=== PATIENT | male | born 1955 | race Caucasian/White ===

== ENCOUNTER 2016-08-23 17:31 | Inpatient (IN) | payer MEDICARE, OTHER ==
[~2016-08-23] VITALS: Ht 177.8 cm; Wt 110.3 kg
[~2016-08-23 17:31] MED LIST: ALPRAZOLAM0.5 M2 PO; ATIVAN1 MG PO; BYSTOLIC5 MG PO; CLEOCIN HC150 MG/CAP PO; FLEXERIL 1010 MG/TAB PO; FLEXERIL5 MG PO; LEXAPRO 10MG10 MG PO; LORTAB 5/500 501 TAB PO; LORTAB 7.5/5001 TAB PO; NAPROXEN 3375 MG/TAB PO; NEURONTIN300 MG/CAP PO; NORCO 325 MG-51 TAB PO; NORVASC5 MG PO; OMEPRAZOLE40 MG PO; PERCOCET 325 MG1 TA2 PO; PERCOCET 325 MG1 TAB PO; PERCR 7.5 PO; PROMETHAZINE12.5 M5 PO; ROXICODONE 55 MG/TAB PO; SERTRALINE50 MG PO; SOMA 350MG350 MG/TAB PO; XANAX 0.5MG0.5 MG PO; XANAX 1MG1 MG PO; ZOFRAN ODT4 MG PO; ZOLOFT 100MG100 MG PO; [UNRECOGNIZED DRUG - CODE]
[2016-08-23 18:17] LABS: BASO % 0.6 % (0.0-2.0); EOS # 0.1 (0.0-0.7); EOS % 1.4 % (0-4.0); GRAN # 3.3 (1.4-6.5); GRAN % 52.2 % (42.2-75.2); HEMATOCRIT 41.3 % (42.0-52.0); HEMOGLOBIN 14.5 g/dl (13.5-18.0); LYMPH # 2.3 (1.2-3.4); LYMPH % 36.5 % (20.0-51.0); MEAN CELL VOLUME 91 fl (80.0-100.0); MEAN CORPUSCULAR HEMOGLOBIN 32 pg (27.0-31.0); MEAN CORPUSCULAR HGB CONC 35 g/dl (33.0-37.0); MEAN PLATELET VOLUME 10.6 fl (7.4-10.4); MONO # 0.6 (0.1-0.6); MONO % 9.1 % (1.7-9.3); PLATELET COUNT 168 K/mm3 (130-400); RED BLOOD COUNT 4.55 M/mm3 (4.20-5.60); REDCELL DISTRIBUTION WIDTH-CV 13.3 % (11.5-14.5); WHITE BLOOD COUNT 6.2 K/mm3 (4.8-10.8)
[2016-08-23] MEDS ORDERED: PERCOCET 325 MG1 TA3 PO (18:29)
[2016-08-23 18:37] LABS: ADJUSTED CALCIUM 9.4 mg/dL (8.4-10.2); ALANINE AMINOTRANSFERASE 48 U/L (21-72); ALBUMIN 3.8 gm/dL (3.5-5.0); ALKALINE PHOSPHATASE 69 U/L (50-136); ANION GAP 10 mmol/L (7-16); BILIRUBIN,TOTAL 0.7 mg/dL (0.0-1.0); BLOOD UREA NITROGEN 18 mg/dL (9-20); CALCIUM 9.2 mg/dL (8.4-10.2); CARBON DIOXIDE 30 mmol/L (22-30); CHLORIDE 102 mmol/L (98-107); CREATININE, serum 1.19 mg/dL (0.66-1.25); GLUCOSE 103 mg/dL (74-106); LIPASE 73 U/L (23-300); MAGNESIUM 1.9 mg/dL (1.6-2.3); POTASSIUM 4.2 mmol/L (3.4-5.0); SODIUM 142 mmol/L (137-145); TOTAL PROTEIN 7.3 gm/dL (6.4-8.2)
[2016-08-23 18:38] LABS: C-REACTIVE PROTEIN < 0.5 mg/dL (0.0-0.9)
[2016-08-23 18:46] LABS: TROPONIN-I < 0.012 ng/mL (0.000-0.034)
[2016-08-23 18:59] LABS: PH 6 (5-8); SQUAMOUS EPITHELIAL 0-2 /hpf; URINE APPEARANCE Clear; URINE BACTERIA None Seen /hpf; URINE BILIRUBIN Negative (NEGATIVE); URINE BLOOD Negative (NEGATIVE); URINE COLOR Yellow; URINE GLUCOSE Negative (NEGATIVE); URINE KETONE Negative (NEGATIVE); URINE RBC 0-2 /hpf; URINE UROBILINOGEN Negative (NEGATIVE); URINE WBC 0-2 /hpf
[2016-08-23 20:39] LABS: B-TYPE NATRIURETIC PEPTIDE 151 pg/mL (0-125)
[2016-08-23 22:19] VITALS: BP 158/90; PULSE 57; TEMP 97.7
[2016-08-24 02:37] VITALS: BP 124/55; PULSE 50; TEMP 97.6
[2016-08-24 08:19] VITALS: BP 143/71; PULSE 56; TEMP 97.5
[2016-08-24 11:35] VITALS: BP 100/56; PULSE 55; TEMP 97.5
[2016-08-24 15:26] VITALS: BP 139/69; PULSE 59; TEMP 97.7
[2016-08-24 19:18] VITALS: BP 155/76; PULSE 58; TEMP 97.8
[2016-08-24 23:30] VITALS: BP 156/87; PULSE 57; TEMP 97.8
[2016-08-25 03:40] VITALS: BP 147/80; PULSE 54; TEMP 98.2
[2016-08-25 07:49] VITALS: BP 155/68; PULSE 58; TEMP 97.8
[2016-08-25 11:57] VITALS: BP 124/57; PULSE 55; TEMP 98.4
[2016-08-25 15:58] VITALS: BP 149/73; PULSE 57; TEMP 97.6
[2016-08-25 19:46] VITALS: BP 151/76; PULSE 52; TEMP 98.3
[2016-08-26 00:14] VITALS: BP 129/59; PULSE 60; TEMP 97.6
[2016-08-26 05:24] VITALS: BP 156/87; PULSE 57; TEMP 97.5
[2016-08-26 11:08] VITALS: BP 133/78; PULSE 56; TEMP 97.8
[2016-08-26 16:53] VITALS: BP 159/90; PULSE 61; TEMP 98.3
[2016-08-26 20:10] VITALS: BP 155/78; PULSE 60; TEMP 98
[2016-08-27] VITALS (299 sets, daily range): BP systolic 132–152; BP diastolic 60–110; PULSE 56–104; TEMP 97.2–98.9; O2SAT 92–99
[2016-08-27 08:18] LABS: HEMATOCRIT 39.4 % (42.0-52.0); HEMOGLOBIN 13.9 g/dl (13.5-18.0); MEAN CELL VOLUME 90 fl (80.0-100.0); MEAN CORPUSCULAR HEMOGLOBIN 32 pg (27.0-31.0); MEAN CORPUSCULAR HGB CONC 35 g/dl (33.0-37.0); MEAN PLATELET VOLUME 10.3 fl (7.4-10.4); PLATELET COUNT 161 K/mm3 (130-400); RED BLOOD COUNT 4.38 M/mm3 (4.20-5.60); REDCELL DISTRIBUTION WIDTH-CV 13.2 % (11.5-14.5); WHITE BLOOD COUNT 5.1 K/mm3 (4.8-10.8)
[2016-08-27 08:31] LABS: ADJUSTED CALCIUM 8.7 mg/dL (8.4-10.2); ALBUMIN 3.8 gm/dL (3.5-5.0); BILIRUBIN,TOTAL 0.9 mg/dL (0.0-1.0); BLOOD UREA NITROGEN 11 mg/dL (9-20); CALCIUM 8.5 mg/dL (8.4-10.2); CHLORIDE 102 mmol/L (98-107); POTASSIUM 3.9 mmol/L (3.4-5.0); SODIUM 138 mmol/L (137-145)
[2016-08-27 08:48] LABS: ALANINE AMINOTRANSFERASE 71 U/L (21-72); ALKALINE PHOSPHATASE 65 U/L (50-136); CARBON DIOXIDE 25 mmol/L (22-30); CREATININE, serum 0.99 mg/dL (0.66-1.25); GLUCOSE 95 mg/dL (74-106); TOTAL PROTEIN 6.8 gm/dL (6.4-8.2)
[2016-08-27 08:49] LABS: ANION GAP 11 mmol/L (7-16)
[2016-08-27 08:50] LABS: TROPONIN-I < 0.012 ng/mL (0.000-0.034)
[2016-08-27] MEDS ORDERED: PROTONIX 40MG T40 MG PO (11:19)
== END 2016-08-27 12:34 | disposition home or self-care (01) | DRG 392 ==
LOC: COL.ER 17:31 → MEDICAL 21:06 → ICU 08-25 15:47 → MEDICAL 08-25 15:47 → ICU 08-27 03:08
PROVIDERS: Emergency Medicine; Internal Medicine Gastroenterology
PROC: 0DB68ZX Excision of Stomach, Via Natural or Artificial Opening Endoscopic, Diagnostic (ICD-10-PCS; principal; 2016-08-26 08:10)
DX: K29.30 Chronic superficial gastritis without bleeding (principal); K29.80 Duodenitis without bleeding; K25.7 Chronic gastric ulcer without hemorrhage or perforation; I16.0 Hypertensive urgency; F41.1 Generalized anxiety disorder; I44.0 Atrioventricular block, first degree
CPT/HCPCS: 99233-AI; 99239; A9537; G0378; J1170; J1650; J2405; J2704; J7030; Q9967

== ENCOUNTER → 2018-02-05 | Outpatient (CLI) | payer MEDICARE ==
[~2018-02-05] MED LIST changes: +PERCOCET 325 MG1 TA3 PO; +PROTONIX 40MG T40 MG PO
== END ==
LOC: COL.RAD 08:56
DX: M16.11 Unilateral primary osteoarthritis, right hip (principal)
CPT/HCPCS: J3301; Q9967

== ENCOUNTER 2018-04-25 09:58 | Emergency (ER) | payer MEDICARE ==
[~2018-04-25] VITALS: Ht 177.8 cm; Wt 97.7 kg
[2018-04-25 10:03] VITALS: TEMP 97.1
[2018-04-25] MEDS ORDERED: PREDNISONE10 MG PO (10:53)
[2018-04-25 11:06] VITALS: BP 144/89; PULSE 65
== END 2018-04-25 11:03 | disposition home or self-care (01) ==
LOC: COL.ER 09:58
DX: S43.102A Unspecified dislocation of left acromioclavicular joint, initial encounter (principal); G89.29 Other chronic pain; M54.12 Radiculopathy, cervical region; Z79.52 Long term (current) use of systemic steroids; X58.XXXA Exposure to other specified factors, initial encounter

== ENCOUNTER 2019-07-15 11:55 | Emergency (ER) | payer SELFPAY ==
[~2019-07-15] VITALS: Ht 177.8 cm; Wt 100.0 kg
[~2019-07-15 11:55] MED LIST changes: +PREDNISONE10 MG PO
[2019-07-15] MEDS ORDERED: LIPITOR 40MG TA40 MG PO (12:05)
[2019-07-15] MEDS ORDERED: NORVASC 5MG5 MG/TAB PO (12:05)
[2019-07-15] MEDS ORDERED: FLEXERIL 1010 MG/TAB PO (13:53)
[2019-07-15 15:34] LABS: BASO % 0.5 % (0.0-2.0); EOS # 0.1 (0.0-0.7); EOS % 2.1 % (0-4.0); GRAN # 3.9 (1.4-6.5); GRAN % 59.4 % (42.2-75.2); HEMATOCRIT 41.3 % (42.0-52.0); HEMOGLOBIN 14.5 g/dl (13.5-18.0); LYMPH # 1.9 (1.2-3.4); LYMPH % 28.8 % (20.0-51.0); MEAN CELL VOLUME 90 fl (80.0-100.0); MEAN CORPUSCULAR HEMOGLOBIN 32 pg (27.0-31.0); MEAN CORPUSCULAR HGB CONC 35 g/dl (33.0-37.0); MEAN PLATELET VOLUME 10.1 fl (7.4-10.4); MONO # 0.6 (0.1-0.6); PLATELET COUNT 180 K/mm3 (130-400); RED BLOOD COUNT 4.58 M/mm3 (4.20-5.60); REDCELL DISTRIBUTION WIDTH-CV 12.4 % (11.5-14.5)
[2019-07-15 15:43] LABS: ALANINE AMINOTRANSFERASE 33 U/L (21-72); ALBUMIN 4.4 gm/dL (3.5-5.0); ALKALINE PHOSPHATASE 69 U/L (50-136); ANION GAP 6 mmol/L (7-16); AST,SGOT 22 U/L (15-37); BILIRUBIN,TOTAL 0.4 mg/dL (0.0-1.0); BLOOD UREA NITROGEN 15 mg/dL (9-20); CALCIUM 9.2 mg/dL (8.4-10.2); CARBON DIOXIDE 29 mmol/L (22-30); CHLORIDE 105 mmol/L (98-107); CREATININE, serum 0.84 (0.66-1.25); GLUCOSE 86 mg/dL (74-106); POTASSIUM 4.3 mmol/L (3.4-5.0); SODIUM 140 mmol/L (137-145); TOTAL PROTEIN 7.6 gm/dL (6.4-8.2)
[2019-07-15 16:00] VITALS: BP 148/74; PULSE 55; TEMP 98.2
[2019-07-15 16:01] LABS: TROPONIN-I < 0.012 ng/mL (0.000-0.035)
[2019-07-15] MEDS ORDERED: NORCO 325 MG-51 TAB PO (16:21)
== END 2019-07-15 16:15 | disposition home or self-care (01) ==
LOC: COL.ER 11:55
PROVIDERS: Emergency Medicine
DX: S20.219A Contusion of unspecified front wall of thorax, initial encounter (principal); R40.2412 Glasgow coma scale score 13-15, at arrival to emergency department; I10 Essential (primary) hypertension; W01.0XXA Fall on same level from slipping, tripping and stumbling without subsequent striking against object, initial encounter; Y92.59 Other trade areas as the place of occurrence of the external cause

== ENCOUNTER → 2019-07-23 | Outpatient (CLI) | payer MEDICARE ==
[~2019-07-23] MED LIST changes: +LIPITOR 40MG TA40 MG PO; +NORVASC 5MG5 MG/TAB PO
== END ==
LOC: COL.VAS 10:49
DX: R94.31 Abnormal electrocardiogram [ECG] [EKG] (principal)

== ENCOUNTER → 2019-11-11 | Outpatient (CLI) | payer OTHER | LOC: COL.RAD 12:02 | DX: M75.101 Unspecified rotator cuff tear or rupture of right shoulder, not specified as traumatic (principal) ==

== ENCOUNTER → 2022-10-25 | Outpatient (CLI) | payer MEDICARE ==
[~2022-10-25] VITALS: Ht 177.8 cm; Wt 112.6 kg
[2022-10-25 11:28] VITALS: BP 162/81; PULSE 62; TEMP 97.8
[2022-10-25 12:40] VITALS: BP 147/81; PULSE 60
== END ==
LOC: COL.RAD 11:07
DX: M48.02 Spinal stenosis, cervical region (principal)
CPT/HCPCS: J1100